=== PATIENT | male | born 1990 | race Caucasian/White ===

== ENCOUNTER 2023-11-15 09:25 | Outpatient (CLI) | payer BC, OTHER, SELFPAY | END 2023-11-15 09:26 | disposition home or self-care (01) | LOC: NFLDREF 11-17 14:25 | PROVIDERS: PCP Family Medicine; Referring Provider Family Medicine; Visit Provider Family Medicine | DX: Z13.1 Encounter for screening for diabetes mellitus (principal); Z13.220 Encounter for screening for lipoid disorders | CPT/HCPCS: 80061; 82947 ==

== ENCOUNTER 2023-11-16 09:06 | Outpatient (CLI) | payer OTHER, SELFPAY ==
--- NOTE | 2023-11-16 09:15 | CRLHL7_ITS ---
For Patients: As a result of the 21st Century Cures Act, medical imaging exams and procedure reports are released immediately into your electronic medical record. You may view this report before your referring provider. If you have questions, please contact your health care provider. CLINICAL INDICATION: Left shoulder pain. COMPARISON IMAGING STUDIES: Radiographs from 10/28/2023. TECHNICAL: Non-contrast MRI of the left shoulder. Axial, sagittal oblique and coronal oblique T1, PD, PD FS, T2 and T2 FS images. 1.5 Josie MR scanner. FINDINGS: GLENOHUMERAL JOINT: Effusion: Physiologic quantity of joint fluid. Humeral Head Articular Cartilage: Maintained. Glenoid Articular Cartilage: Maintained. Alignment: Maintained. Capsule: No capsular edema. OSSEOUS STRUCTURES: No fracture or marrow replacement process. CORACOACROMIAL ARCH: Acromial Morphology: Type 2 acromial morphology. No excessive downward sloping of the acromion. No os acromiale. No significant subacromial spur. Lateral acromial thickness is 8 mm. Acromiohumeral Interval: At its narrowest, the interval measures 8 mm. Mildly prominent coracoacromial ligament. Coracohumeral Interval: At its narrowest, the coracohumeral interval measures 14 mm. Coracoid index is 5 mm. ACROMIOCLAVICULAR JOINT REGION: AC joint intact. Coracoclavicular ligament intact. BURSAE: No bursal fluid collection. ROTATOR CUFF TENDONS AND MUSCLES AND DELTOID: Supraspinatus and Infraspinatus: Mild distal supraspinatus tendinosis. No distal tendon tear or muscle atrophy. Distal infraspinatus tendon is intact. No infraspinatus muscle atrophy. Teres Minor: Distal teres minor tendon is intact. No muscle atrophy. Subscapularis: Mild distal subscapularis tendinosis superiorly. No subscapularis tendon tear or muscle atrophy. Deltoid: No muscle atrophy or edema. BICEPS TENDON, LONG HEAD: The long head of the biceps tendon is intact. No subluxation or dislocation of tendon from bicipital groove. GLENOID LABRUM: Intact. OTHER FINDINGS: There is no abnormality within the suprascapular or spinoglenoid notches nor within the quadrilateral space. No axillary adenopathy or mass. IMPRESSION: 1. Mild distal supraspinatus and subscapularis tendinosis. No significant rotator cuff tendon tear. 2. Glenohumeral joint space maintained. 3. No bursitis. Dictated by Phuc Winkler MD @ 11/17/2023 9:15:57 AM (Electronically Signed)
== END 2023-11-16 09:07 | disposition home or self-care (01) ==
LOC: MRI 09:07
PROVIDERS: PCP Family Medicine; Visit Provider Emergency Medicine
DX: M25.512 Pain in left shoulder (principal); M75.102 Unspecified rotator cuff tear or rupture of left shoulder, not specified as traumatic
CPT/HCPCS: 73221

== ENCOUNTER 2023-12-02 10:30 | Outpatient (RCR) | payer OTHER, BC, SELFPAY | END 2024-03-31 23:59 | disposition home or self-care (01) | PROVIDERS: PCP Family Medicine; Visit Provider Emergency Medicine | DX: M75.90 Shoulder lesion, unspecified, unspecified shoulder (principal); M75.80 Other shoulder lesions, unspecified shoulder; M25.512 Pain in left shoulder; M89.8X1 Other specified disorders of bone, shoulder; Z74.09 Other reduced mobility; R53.1 Weakness; Z51.89 Encounter for other specified aftercare | CPT/HCPCS: 97110; 97140; 97162 ==

== ENCOUNTER 2024-09-12 18:00 | Emergency (ER) | payer BC, SELFPAY ==
--- OUTSIDE RECORDS SUMMARY | 2024-09-12 18:02 | XMS_ITS | Patient Health Record ---
Author Organization [address] [place] [address] SURGICAL Address [address] [facility] [address] [place], [place] [id number] Care Team Providers Care Community Music Therapist Name Role Phone Chan Koenig Unavailable Unavailable Reason For Referral No Information Plan Of Treatment No Information Insurance Providers Payer Name Payer Address Payer Phone Subscriber Number Group Number Insured Name Patient Relationship to Insured Coverage Start Date Coverage End Date [employer] [address] [place], [place] [id number] Charli Laird Self - patient is the insured 8
[2024-09-12 18:06] VITALS: BP 124/86; PULSE 65; RESP 18; TEMP 36.8; O2SAT 99; BMI 27.6
--- NOTE | 2024-09-12 18:45 | ED.GENADULT ---
HPI - General Adult General Chief complaint: Chest Pain Stated complaint: left chest pain when breathing Time Seen by Provider: 09/12/24 18:02 History of Present Illness HPI narrative: This 34-year-old male comes in reporting chest pain in the left anterior chest that occurs when taking a deep breath and completely goes away when breathing normally. He states that these symptoms began yesterday. 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 He denies having any nausea, vomiting, lightheadedness, shortness of breath, diaphoresis, or exercise intolerance. If he is breathing very quietly he does not have any discomfort. Related Data Home Medications ?Medication ?Instructions ?Recorded ?Confirmed acetaminophen 325 mg tablet 650 mg PO Q6H PRN 11/02/23 02/29/24 (Tylenol) ibuprofen 200 mg PO .prn 11/09/23 02/29/24 dextromethorphan HBr [Vicks PO 02/29/24 02/29/24 DayQuil Cough] pseudoephedrine HCl PO 02/29/24 02/29/24 Previous Rx's ?Medication ?Instructions ?Recorded ketorolac 10 mg tablet 10 mg PO TID 5 days #15 tabs 09/12/24 Allergies Allergy/AdvReac Type Severity Reaction Status Date / Time No Known Drug Allergies Allergy Verified 02/29/24 08:36 Review of Systems Status of ROS: Reports: 10 or more systems reviewed and unremarkable except as noted in History and below Narrative: Constitutional: No fevers, no weight gain or loss. Eyes: No discharge. No vision changes. HENT: No congestion, no sore throat, no ear pain. Cardiovascular: No palpitations. Respiratory: No shortness of breath, no wheezes, no cough. Gastrointestinal: No abdominal pain, no vomiting, no diarrhea. Genitourinary: No dysuria, no hematuria. Musculoskeletal: Normal range of motion. Skin: No rashes, no pruritis. Neurological: No dizziness, weakness, sensory change, speech change. Endo/Heme/Allergies: No bruising or bleeding. No polydipsia. Pysch: no suicidality, no anxiety, no insomnia. All other systems reviewed and are negative. [facility] Medical History Supraspinatus tendinitis ?M75.90 - Shoulder lesion, unspecified, unspecified shoulder (ICD-10) Subscapularis tendonitis ?M75.80 - Other shoulder lesions, unspecified shoulder (ICD-10) Axillary pain ?M79.629 - Pain in unspecified upper arm (ICD-10) Shoulder pain, left ?M25.512 - Pain in left shoulder (ICD-10) Social History (Updated 12/21/23 @ 09:44 by Emilia Wasserman ~ [facility], POLITICAL DIRECTOR) Narrative: Lives with dad and stepmom, became acquainted with his dad at age 32 What is your current living situation?: I presently have a place to live Problems where you live: no known problems In the past 12 months, utilities in danger of being shut off: no In past 12 months, lack of transportation kept you from medical appts, meetings, work, or getting things needed for daily living: no In the past 12 mos, have been you worried that your food would run out before you had money to buy more?: never true In the past 12 mos, the food you bought just didn't last and you didn't have money to buy more?: never true Smoking Status: Former smoker What tobacco products do you use: cigarettes Smoking quit date/years: <= 15 years ago Do you use any of these nicotine containing products: Vaping Products Second hand tobacco smoke exposure: No How often does anyone, including family, friends and others, physically hurt you: never How often does anyone, including family, friends and others, insult or talk down to you: never How often does anyone, including family, friends and others, threaten you with harm: never How often does anyone, including family, friends and others, scream or curse at you: never Exam Narrative: Exam Narrative: Constitutional: Well-developed, well-nourished, no acute distress. HEENT: Normocephalic, atraumatic. Neck: Normal range of motion. Nontender. Supple. Heart: Regular. No murmurs. Normal rate. Intact distal pulses. Lungs: Clear to auscultation. No wheezes, rhonchi, or rales. Chest discomfort is distinctly reproduced when taking a deep breath and relieved and breathing normally. Abdomen: Normal bowel sounds. Nontender. No rebound tenderness. Genitalia: Deferred. Back: No midline tenderness. Normal range of motion. Extremities: Normal range of motion. No injury. Skin: Intact. No rash. Warm. No erythema or pallor. Neurologic: No altered sensation. No weakness. Alert and oriented. Psychiatric: No suicidality. No anxiety or depression. No insomnia. Nursing notes and vitals signs are reviewed. Const: Vital Signs, click to edit/add: Vital Signs - 24 hr 09/12/24 18:06 Temperature 98.2 F Pulse Rate [Pulse Oximeter] 65 Respiratory Rate 18 Blood Pressure [[facility] Upper Arm] 124/86 Pulse Oximetry 99 Oxygen Delivery Me thod Room Air Course Vital Signs Vital signs: Initial Vital Signs Temperature 98.2 F 09/12/24 18:06 Temperature Source Temporal Artery Scan 09/12/24 18:06 Pulse Rate 65 09/12/24 18:06 Pulse Rhythm Regular 09/12/24 18:06 Respiratory Rate 18 09/12/24 18:06 Blood Pressure 124/86 09/12/24 18:06 Blood Pressure Mean 98 09/12/24 18:06 Blood Pressure Position Sitting 09/12/24 18:06 Pulse Oximetry 99 09/12/24 18:06 Oxygen Delivery Method Room Air 09/12/24 18:06 Vital Signs Temperature 98.2 F 09/12/24 18:06 Pulse Rate 65 09/12/24 18:06 Respiratory Rate 18 09/12/24 18:06 Blood Pressure 124/86 09/12/24 18:06 Pulse Oximetry 99 09/12/24 18:06 Oxygen Delivery Method Room Air 09/12/24 18:06 Temperature 98.2 F 09/12/24 18:06 Pulse Rate 65 09/12/24 18:06 Respiratory Rate 18 09/12/24 18:06 Blood Pressure 124/86 09/12/24 18:06 Pulse Oximetry 99 09/12/24 18:06 Oxygen Delivery Method Room Air 09/12/24 18:06 Medical Decision Making MDM Narrative Medical decision making narrative: This patient comes in with left-sided chest pain that is distinctly reproducible when taking a deep breath. His lungs are normal and vital signs are all normal. He does not report any particular strenuous activity or injury event but does report that he has normal strenuous activity at his work. EKG shows normal sinus rhythm without any ST or T-wave abnormalities. The patient is not displaying any signs or symptoms suspicious for cardiac or pulmonary cause for his chest discomfort. The pain is reproducible strongly suggesting chest wall pain. I did discuss lab and imaging options with the patient who declined them in a process of shared decision making. I did provide a return to work note. I also prescribed Toradol. He may benefit also from using a rib belt. ECG Data Attestation: I personally reviewed and interpreted this ECG as follows: Interpretation: Normal sinus rhythm. Rate is 65 beats per minute. There are no ST or T-wave abnormalities. Discharge Plan Discharge Clinical Impression: Acute chest wall pain Patient Disposition: Home, Self-Care Condition: Stable Additional Instructions: Take medication as needed and directed. Consider using a rib belt for additional relief. Increase activity as tolerated. Follow up with MD return if worsening. Prescriptions: New ketorolac 10 mg tablet 10 mg PO TID 5 Days Qty: 15 0RF No Action acetaminophen [Tylenol] 325 mg tablet 650 mg PO Q6H PRN pseudoephedrine HCl PO dextromethorphan HBr [Vicks DayQuil Cough] PO ibuprofen 200 mg PO .prn Follow Up/Referrals: Jt Clark MD [Primary Care Provider, Family Practice] Stand Alone Forms: [employer] Info Instructions
== END 2024-09-12 19:09 | disposition home or self-care (01) ==
LOC: ED 18:58
PROVIDERS: Emergency Provider Emergency Medicine Emergency Medical Services; PCP Family Medicine
DX: R07.89 Other chest pain (principal)
CPT/HCPCS: 93005; 99284